=== PATIENT | female | born 1970 | race Caucasian/White ===

== ENCOUNTER → 2016-07-15 | Day surgery (SDC) | payer OTHER ==
[~2016-07-15] VITALS: Ht 175.3 cm; Wt 61.2 kg
[~2016-07-15] MED LIST: CYMBALTA60 M1 PO; HORIZANT600 M1 PO; PROTONIX40 M3 PO
--- NOTE | 2016-07-15 11:58 | Operative Report ---
Operative/Inv Procedure Report Surgery Date: 07/15/16 Name of Procedure: 1. Exam under anesthesia with anal block 2. Ultrasound-guided transanal hemorrhoidal dearterialization 3 quadrants Pre-Operative Diagnosis: Grade 2 circumferential bleeding internal hemorrhoids Post-Operative Diagnosis: Same Estimated Blood Loss: scant Surgeon/Log Cut Off Sawyer: CONSTANCE ZURITA MD Anesthesia: local monitored anesthesi Specimens: None Complications: None Condition: Stable to recovery room Operative Indication: Patient is a 45-year-old woman with circumferential bleeding grade 2 internal hemorrhoids. Patient did not tolerate rubber band ligation in the office. She presents today for ultrasound-guided transanal hemorrhoidal dearterialization. All risks benefits and alternatives of procedure were explained to patient detail, and she expressed understanding and agreement with the same. Operative/Procedure Note Note: Patient was taken to the operating room and placed on the operating table in the prone jackknife position. Bilateral lower extremity SCDs were placed on both legs. Anesthesia was established by the anesthesia team. The buttocks were taped apart and the perineum was prepped and draped in the standard surgical fashion. The timeout was done. The anal block was administered with 20 mL of 1% lidocaine. On anoscopy the patient had prominent right anterior right posterior left lateral hemorrhoidal pedicles with friable bleeding hemorrhoids. The ultrasound was used to localize the right posterior hemorrhoidal artery first. A 2-0 Vicryl suture was used in a [id number] fashion to ligate the hemorrhoidal artery based on the ultrasound signal area and then the same suture was run distally just proximal to the dentate line. Both ends of the suture were tied together, thus pexing the hemorrhoidal pedicle. Then the attention was moved to read the right anterior hemorrhoidal artery. It was identified with the ultrasound and secured in the same fashion. The left lateral hemorrhoidal artery was also identified with the ultrasound and pexied. In the end of the case, 30 mL of Exparel were administered for the anal block. The sponge and instrument counts were correct in the end the procedure. The patient tolerated procedure well. The patient was wakened up and taken to recovery room in stable condition. Findings: Circumferential friable bleeding grade 2 internal hemorrhoids Discharge Disposition: home
== END ==
LOC: STS 03:00
DX: K64.1 Second degree hemorrhoids (principal); K60.2 Anal fissure, unspecified; K21.9 Gastro-esophageal reflux disease without esophagitis
CPT/HCPCS: 81025; C9290; J0131; J2250